=== PATIENT | male | born 1960 | race Caucasian/White ===

== ENCOUNTER 2016-10-04 11:40 | Outpatient (CLI) | payer MEDICARE ==
[~2016-10-04] VITALS: Ht 172.7 cm; Wt 64.5 kg
--- NOTE | ~2016-10-04 | HEMODYNAMI ---
PATIENT:SHEREEN MISTRY MEDICAL RECORD: [id number] : 56 LOCATION:[facility] ADMISSION DATE: 10/04/16 Generatedon:10/04/201613:42 Patient name: SHEREEN MISTRY Patient #: [id number] SSN: : Date of study: 10/04/2016 Page: Of Hemodynamic Procedure Report Patient Data Patient Demographics Procedure consent was obtained First Name: SHEREEN Gender: Male Last Name: FIDELIA : 1960 [facility] Initial: SANJANA Age: 56 year(s) Patient #: [id number] Race: Unknown Additional ID: [id number] Contact details Address: [address] [place] [address] State: [place] City: [place] Zip code: [address] Past Medical History Allergies Allergen Reaction Date Comments Reported Other allergy 10/04/2016 Atarax, Dilantin Admission Admission Data Admission Date: 10/04/2016 Admission Time: 11:40 Lab Results Lab Result Date: 10/04/2016 Lab Result Time: 0:00 Biochemistry Name Units Result Min Max Creatinine mg/dl 0.9 --(-*--)-- 0.6 1.3 CBC Name Units Result Min Max Hemoglobin g/dl 12.9 -*(----)-- 13.5 17.5 Procedure Procedure Types Cath Procedure Diagnostic Procedure C [facility] w/Coronaries Procedure Description Procedure Date Procedure Date: 10/04/2016 Procedure Start Time: 13:26 Procedure End Time: 13:41 Procedure Staff Name Function Jeffrey White MD Performing Physician Scooter Prather RT Scrub Nir Jennings RN Nurse Tara Porter RT Monitor Procedure Data Cath Procedure Fluoroscopy Diagnostic fluoroscopy Total fluoroscopy Time: 2.5 time: 2.5 min min Diagnostic fluoroscopy Total fluoroscopy dose: 291 dose: 291 mGy mGy Contrast Material Contrast Material Type Amount (ml) Isovue 300 58 Entry Location Entry Primary Successful Side Size Upsize Upsize Entry Closure Veronica ccessful Closure Location (Fr) 1 (Fr) 2 (Fr) Remarks Device Remarks Radial Right 6 Fr Mechanical artery Short Compression Estimated blood loss: 5 ml Diagnostic catheters Device Type Used For End Catheter Placement Terumo 5Fr Shyam 110cm LV Angiography catheter Terumo 5Fr Shyam 110cm Left Coronary catheter Angiography Terumo 5Fr Shyam 110cm Right Coronary catheter Angiography Procedure Complications No complications Procedure Medications Medication Administration Route Dosage Oxygen NC 2 l/min Heparin Flush Bag added to field 2 bags (1000units/500ml NS) 0.9% NaCl I.V. 100 ml/hr Radial Cocktail added to field 1 syringe (Verapomil 2mg/Nitro 400mcg/Heparin 1500units) Fentanyl I.V. 50 mcg Versed I.V. 1 mg Fentanyl I.V. 50 mcg Versed I.V. 1 mg Radial Cocktail I.A. 1 syringe (Verapomil 2mg/Nitro 400mcg/Heparin 1500units) Fentanyl I.V. 50 mcg Hemodynamics Rest HGB: 12.9 (g/dl) Heart Rate: 87 (bpm) Pressure Samples Time Site Value (mmHg) Purpose Heart Use Rate(bpm) 13:29 LV 102/-7,3 EDP 85 13:30 AO 62/39(48) Pullback 85 13:30 LV 99/-7,2 Pullback 85 Gradients Valve Time Site 1 Site 2 Mean SEP/DFP Peak To Heart Use (mmHg) (sec/min) Peak Rate (mmHg) (bpm) Aortic 13:30 LV AO 16 17 37 85 99/-7,2 62/39(48) Calculations Valve P-P Mean Valve Index Valve Source Name Gradient Area Flow (cm2) Aortic 37 16 37 16 Snapshots Pre Cath Intra NCS Post Cath Vital Signs Time Heart Resp SPO2 NIBP (mmHg) Rhythm Pain Sedation Rate (ipm) (%) Status Level (bpm) 13:06:23 91 16 97 160/98(126) NSR 0 (11) 10(A) , No pain 13:10:39 85 18 100 157/85(123) NSR 0 (11) 10(A) , No pain 13:14:51 86 19 98 122/66(88) NSR 0 (11) 10(A) , No pain 13:19:03 81 17 98 116/67(92) NSR 0 (11) 10(A) , No pain 13:23:15 80 18 98 102/58(81) NSR 0 (11) 9(A) , No pain 13:27:18 79 18 98 105/62(82) NSR 0 (11) 9(A) , No pain 13:31:28 84 17 97 78/41(70) NSR 0 (11) 9(A) , No pain 13:35:28 84 18 96 90/48(68) NSR 0 (11) 9(A) , No pain 13:37:29 81 18 96 87/46(64) NSR 0 (11) 9(A) , No pain 13:41:35 79 8 96 84/43(65) NSR 0 (11) 9(A) , No pain Medications Time Medication Route Dose Verified Delivered Reason Notes Effectiveness by by 13:09:49 Oxygen NC 2 l/min Nir Loyola Per Dick Jennings RN physician RN 13:10:00 Heparin Flush added 2 bags Nir Loyola used for Bag to Dick Jennings RN procedure (1000units/500ml field RN NS) 13:10:08 0.9% NaCl I.V. 100 Nir Loyola Per ml/hr Dick Jennings RN physician RN 13:10:17 Radial Cocktail added 1 Nir Loyola used for (Verapomil to syringe Dick Jennings RN procedure 2mg/Nitro RN 400mcg/Heparin 1500units) 13:18:34 Fentanyl I.V. 50 mcg Nir Nir for sedation Dick Jennings RN RN 13:18:41 Versed I.V. 1 mg Nir Nir for sedation Dick Jennings RN RN 13:20:17 Fentanyl I.V. 50 mcg Nir Nir for sedation Dick Jennings RN RN 13:20:21 Versed I.V. 1 mg Nir Nir for sedation Dick Jennings RN RN 13:28:04 Radial Cocktail I.A. 1 Nir Elliotty for (Verapomil syringe Dick Jennings RN vasodilation 2mg/Nitro RN 400mcg/Heparin 1500units) 13:28:10 Fentanyl I.V. 50 mcg Nir Nir for sedation Dick Jennings RN communications engineering technician Log Time Note 12:48:38 Nir Jennings RN sent for patient. Start room use. 12:58:44 Time tracking: Regular hours 12:58:47 Plan of Care:Hemodynamics will remain stable., Cardiac rhythm will remain stable., Comfort level will be maintained., Respiratory function will remain adequate., Patient/ family verbilizes understanding of procedure., Procedure tolerated without complication., Recovers from procedure without complications.. 12:58:52 Patient received from Pre/Post Procedure Room to CCL 2 Alert and oriented. Tansferred to table in Supine position. 12:58:53 Warm blankets applied, and hunter hugger turned on for patient comfort. 12:58:53 Correct patient and procedure confirmed by team. 12:58:54 Signed procedure consent form obtained from patient. 12:58:55 ECG and BP/O2 sat monitors applied to patient. 12:58:56 Full Disclosure recording started 13:05:14 Vital chart was started 13:09:28 Baseline sample Acquired. 13:09:31 Rhythm: sinus rhythm 13:09:46 H&P Date Dictated: 09/30/2016 Within 30 days and on chart., H&P Addendum completed by physician on day of procedure. (MUST COMPLETE FOR ALL OUTPATIENTS). 13:09:48 Pre-procedure instructions explained to patient. 13:09:48 Pre-op teaching completed and patient verbalized understanding. 13:09:49 Oxygen 2 l/min NC was administered by Nir Jennings RN; Per physician; 13:09:50 Family in waiting room. 13:09:52 Patient NPO since Midnight. 13:10:00 Heparin Flush Bag (1000units/500ml NS) 2 bags added to field was administered by Nir Jennings RN; used for procedure; 13:10:08 0.9% NaCl 100 ml/hr I.V. was administered by Nir Jennings RN; Per physician; 13:10:09 Patient allergic to Other allergyAtarax, Dilantin 13:10:13 Is the patient allergic to Iodine/contrast media? No. 13:10:15 Is patient on blood thinner?No 13:10:17 Radial Cocktail (Verapomil 2mg/Nitro 400mcg/Heparin 1500units) 1 syringe added to field was administered by Nir Jennings RN; used for procedure; 13:10:17 Patient diabetic? No. 13:10:50 Patient has internal pain pump right lower abdomen. 13:11:03 Previous problem with sedation/anesthesia? No ? 13:11:04 Snore? Yes 13:11:05 Sleep apnea? Yes 13:11:06 Deviated septum? No 13:11:07 Opens mouth fully? Yes 13:11:08 Sticks out tongue? Yes 13:11:15 Airway obstruction? Yes COPD 13:11:26 Dentures? No ? 13:11:29 Pre procedure: right dorsailis pedis pulse 2+ Normal; easily identifiable; not easily obliterated 13:11:32 Modified Abdullahi's test Ulnar < 7 seconds 13:11:36 Patient pain scale 0/10 ?. 13:11:43 IV patent on arrival in left hand with 0.9% NaCl at [facility]. 13:12:05 Lab Result : Creatinine 0.9 mg/dl 13:12:05 Lab Result : Hemoglobin 12.9 g/dl 13:13:01 Lab results completed and on chart. 13:13:05 Right Radial & Right Groin area was prepped with chlora-prep and draped in sterile fashion 13:13:06 Alarms reviewed by R. N. 13:13:06 Sharps counted by scrub and verified by R.N. 13:13:56 Use device set Radial Dx 13:13:57 Acist Syringe opened to sterile field. 13:13:58 Medline Cath Pack opened to sterile field. 13:13:58 Bag Decanter opened to sterile field. 13:13:59 Terumo 6Fr Slender Glidesheath opened to sterile field. 13:13:59 St [place] Pablo 260cm J .035 wire opened to sterile field. 13:14:00 Acist Hand Control opened to sterile field. 13:14:01 Acist Manifold opened to sterile field. 13:14:01 Tegaderm 4 x 4 opened to sterile field. 13:14:02 MBrace Wrist Support opened to sterile field. 13:17:28 Final Timeout: patient, procedure, and site verified with staff and physician. All members of the team are in agreement. 13:17:31 Right Radial site verified by team. 13:17:46 Physical assessment completed. ASA score P 2 - A patient with mild systemic disease as per Jeffrey White MD. 13:17:51 Sedation plan: IV Moderate Sedation Versed, Fentanyl 13:18:34 Fentanyl 50 mcg I.V. was administered by Inr Jennings RN; for sedation; 13:18:41 Versed 1 mg I.V. was administered by Nir Jennings RN; for sedation; 13:20:17 Fentanyl 50 mcg I.V. was administered by Nir Jennings RN; for sedation; 13:20:21 Versed 1 mg I.V. was administered by Nir Jennings RN; for sedation; 13:22:41 Zero performed for pressure channel P1 13:24:01 Zero performed for pressure channel P1 13:24:38 Procedure started. 13:26:26 Local anesthetic to right radial artery with Lidocaine 2% by Jeffrey White MD.INITIAL ACCESS ONLY 13:27:09 A 6 Fr Short sheath was inserted into the Right Radial artery 13:27:57 A Terumo 5Fr Shyam 110cm catheter was advanced over the wire and used for LV Angiography. 13:28:04 Radial Cocktail (Verapomil 2mg/Nitro 400mcg/Heparin 1500units) 1 syringe I.A. was administered by Nir Jennings RN; for vasodilation; 13:28:10 Fentanyl 50 mcg I.V. was administered by Nir Jennings RN; for sedation; 13:29:37 LV gram done using COPE 13:29:38 LV hemodynamics recorded. 13:29:45 Injector settings: Ml/sec: 5, Volume: 15, 13:29:51 EF : 55 % 13:30:49 A Terumo 5Fr Shyam 110cm catheter was advanced over the wire and used for Left Coronary Angiography. 13:33:15 A Terumo 5Fr Shyam 110cm catheter was advanced over the wire and used for Right Coronary Angiography. 13:34:30 Catheter removed. 13:35:56 Sheath removed intact; hemostasis achieved with Mechanical Compression to the Right Radial artery. 13:36:04 Procedure ended.(Physican Out) 13:36:51 Fluoroscopy time 02.50 minutes. 13:36:55 Fluoroscopy dose: 291 mGy 13:36:55 Flurop Dose total: 291 13:37:06 Contrast amount:Isovue 300 58ml. 13:37:08 Sharps counted by scrub and verified by R.N. 13:37:10 TR band inflated with 11cc of air. 13:37:10 Insertion/operative site no bleeding no hematoma. 13:37:17 Post right radial artery:stable, clean and dry 13:37:29 Post Procedure Pulses reassessed and unchanged 13:37:35 Post-procedure physical assessment completed. ASA score P 2 - A patient with mild systemic disease as per Jeffrey White MD. 13:37:41 Post procedure rhythm: unchanged. 13:37:46 Estimated blood loss: 5 ml 13:37:47 Post procedure instruction explained to patient.Patient verbalizes understanding. 13:37:48 Patient needs reinforcement of post procedure teaching. 13:38:15 Terumo TR Band Standard opened to sterile field. 13:38:46 Procedure and supply charges have been captured, reviewed, submitted and are correct. 13:38:50 Procedure Complication : No complications 13:38:52 See physician's report for complete and final results. 13:40:55 Vital chart was stopped 13:40:57 Report given to Pre/Post Procedure Room. 13:41:02 Patient transfered to Pre/Post Procedure Room with Stretcher. 13:41:03 Procedure ended. 13:41:03 Full Disclosure recording stopped 13:41:09 End room use (Document Last) Device Usage Item Name Manufacture Quantity Catalog Hospital Part Current Minimal Lot# / Number Charge Number Stock Stock Serial# Code Acist Acist 1 [id number] 193060 469960 613497 20 Syringe [employer] Inc Medline Cardinal 1 [id number] 685588 12223 257745 5 Cath Pack Health Bag Microtek 1 2001S 182395 83773 315846 5 Living[employer] Terumo 6Fr Terumo 1 [id number] 005154 726117 834456 [address] [place] 1 [id number] 232295 944979 993831 30 260cm J .035 wire Acist Hand Acist 1 58236 722171 063908 918645 5 Control [employer] Inc Acist Acist 1 42706 140230 259122 817679 5 Manifold Medical Systems Inc Tegaderm 4 3M 1 1626W 776548 094304 208457 5 x 4 MBrace Advanced 1 140-0250-00 388808 56920 600131 5 Wrist Vascular Support Dynamics Terumo 5Fr Terumo 1 40-5052 497537 895462 443736 5 Shyam 110cm catheter Terumo TR Terumo 1 [id number] 037337 999918 398496 40 Band Standard Signature Audit Vivian Stage Time Signature Unsigned Intra-Procedure 10/04/2016 Tara 1:42:40 PM Counts RT(R) Signatures Monitor : Tara Signature : Counts RT Date : Time : [address] [place] [address]
[~2016-10-04 11:40] MED LIST: COMBIVENT RESPIM4 GM INH; HYDROCODONE-APA1 TAB PO; HYTRIN5 MG PO; LASIX20 MG PO; LOPRESSOR25 MG PO; LOVASTATIN20 MG PO; OMEPRAZOLE40 MG PO; PERCOCET 10/3251 TA1 PO; PHENERGAN25 M1 PO; PRINIVIL10 MG PO; RESTORIL15 MG PO; STOOL SOFTENER100 M1 PO; VALIUM5 MG PO
[2016-10-04] MEDS ORDERED: MUCUS RELIEF400 MG PO (12:06)
[2016-10-04] MEDS ORDERED: DESERYL100 MG PO (12:08)
[2016-10-04] MEDS ORDERED: ZOFRAN8 MG PO (12:08)
[2016-10-04] MEDS ORDERED: ACETAMINOPHEN500 M1 PO (12:10)
[2016-10-04] MEDS ORDERED: FUROSEMIDE20 MG PO (12:12)
[2016-10-04] MEDS ORDERED: LASIX20 MG PO (12:12)
[2016-10-04 12:23] VITALS: BP 153/74; Ht 172.7 cm; Wt 64.5 kg
[2016-10-04 12:38] LABS: BASOPHILS 0.2 % (0.0-2.0); EOSINOPHILS 1.5 % (0-7); HEMATOCRIT 40.4 % (42.0-54.0); HEMOGLOBIN 12.9 g/dL (13.5-17.5); IMMATURE GRANULOCYTES 0.2 % (0-5); LYMPHOCYTES 16.5 % (15-50); MCH 30.9 pg (26.0-34.0); MCHC 31.9 g/dL (31.0-37.0); MCV 96.9 fL (80.0-100.0); MEAN PLATELET VOLUME 9.4 fL (7.4-10.4); MONOCYTES 5.3 % (2-11); NEUTROPHILS 76.3 % (40-80); PLATELET COUNT 160 10x3/uL (130-400); RBC 4.17 10x6/uL (4.20-6.10); RDW 14.2 % (11.5-14.5); WBC 6.6 10x3/uL (4.8-10.8)
[2016-10-04 12:55] LABS: CALC OSMOLALITY 283 mosm/kg (275-300); CALCIUM 8.8 mg/dL (8.5-10.1); CARBON DIOXIDE 31.3 mmol/L (21.0-32.0); CHLORIDE - SERUM 103 mmol/L (98-107); CREATININE - SERUM 0.9 mg/dL (0.6-1.3); GLUCOSE 98 mg/dL (74-106); POTASSIUM - SERUM 3.6 mmol/L (3.5-5.1); SODIUM 142 mmol/L (136-145); UREA NITROGEN 16 mg/dL (7-18); eGFR NON AFRICAN AMERICAN > 90 mL/min (90-120)
--- NOTE | 2016-10-04 15:33 | NUR ---
1400-TR BAND INTACT, NO BLEEDING NOTED 1430-NO CHANGES, RESTING WITH FAMILY AT SIDE
--- NOTE | 2016-10-14 12:24 | OP ---
PATIENT NAME: SHEREEN MISTRY MEDICAL RECORD: [id number] :56 LOCATION:D.[facility] ADMISSION DATE: SURGEON: TIFF YA M.D. DATE OF OPERATION: 10/04/2016 PROCEDURES PERFORMED: 1. Selective coronary angiography. 2. Left heart catheterization with ventriculogram. INDICATION: A 56-year-old gentleman who presents with symptoms of worsening angina and shortness of breath. REFERRING PHYSICIAN: Dr. Yimi Mojica D.O. EQUIPMENT USED: A 5-Nepalese Shyam catheter. TECHNIQUE: A 6-Nepalese sheath was inserted in retrograde fashion in the right radial artery. Next, selective coronary angiography was performed in standard 5-Nepalese Shyam catheter. Left heart catheterization was performed using the Shyam catheter as well. CORONARY ANATOMY: 1. Left main: Left main trunk is moderate in caliber. It gives rise to the LAD and circumflex. There is no obstruction. 2. LAD: This vessel is large in caliber. The proximal vessel is mildly calcified, but there is no flow limitations noted throughout the vessel. There is nothing worse than 20% throughout the entire vessel. 3. Circumflex: This vessel is large in caliber. It is a smooth-walled vessel and angiographically normal. It supplies a large lateral branch in the proximal segment. This vessel is free of disease as well. 4. Right coronary: This vessel is moderate in caliber and codominant. It is a smooth-walled vessel and angiographically normal. 5. Left ventricle: Left ventricle is normal in size and function. No wall motion abnormalities are seen. Estimated ejection fraction is 55%. There was a 37 mm gradient noted on pullback through the aortic valve. IMPRESSION: 1. Essentially normal coronary arteries. 2. Normal left ventricular function. 3. Mild to moderate aortic stenosis by gradient. RECOMMENDATIONS: I will check an echocardiogram to further assess his aortic valve. This could be the source of his dyspnea. TRANSINT:[id number] Voice Confirmation ID: [id number] DOCUMENT ID: [id number] TIFF YA M.D. at 1224 CC: [id number] DICTATION DATE: 10/04/16 1343 CLERICAL AND OFFICE SUPPORT WORKERS: 10/04/16 1442 DEP CLI 10/04/16 [facility] [address] [place] [address]
== END 2016-10-04 16:30 | disposition home or self-care (01) ==
LOC: D.CATH 11:40
PROVIDERS: Internal Medicine Cardiovascular Disease
DX: I35.0 Nonrheumatic aortic (valve) stenosis (principal)

== ENCOUNTER 2018-05-08 09:09 | Day surgery (SDC) | payer MEDICARE ==
[~2018-05-08] VITALS: Ht 172.7 cm; Wt 68.2 kg
--- NOTE | ~2018-05-08 | OP ---
PATIENT NAME: SHEREEN MISTRY MEDICAL RECORD: [id number] :56 LOCATION:D.OPS ADMISSION DATE: SURGEON: YURIDIA PERALTA MD DATE OF OPERATION: 05/08/2018 PREOPERATIVE DIAGNOSIS: Desires screening colonoscopy. POSTOPERATIVE DIAGNOSIS: Desires screening colonoscopy, without colonic polyps or masses. PROCEDURE: Total colonoscopy to cecum. SURGEON: Yuridia Peralta MD SHUFFLE BOARD OPERATOR: None. BLOOD LOSS: Zero. COMPLICATIONS: None. ENDOSCOPIC COURSE: The patient was conveyed to the endoscopy suite electively on 05/08/2018. IV sedation was induced by the anesthesia staff. The patient was placed in the Nelson position. A digital rectal examination was performed. A colonoscope was inserted through the anus. It was easily advanced to the cecum. Upon withdrawal, I irrigated and aspirated extensively. The prep was adequate. I dragged the folds. Pullback was greater than a 14-minute pullback. A retroflexed view was obtained in the rectum. I then unretroflexed the scope and removed it under direct vision. Unless the patient develops new symptoms such as bleeding, there is no need for the patient to follow up with me in the office. Otherwise, his next colonoscopy can be in 10 years. TRANSINT:[id number] Voice Confirmation ID: [id number] DOCUMENT ID: [id number] YURIDIA PERALTA MD at 1603 CC: RASHID CRUZ and SILAS SWIFT ANP [id number] DICTATION DATE: 05/08/18 1343 WRONG ADDRESS CLERK: 05/08/18 1427 [facility] 05/08/18 [place] [id number]
[~2018-05-08 09:09] MED LIST changes: +ACETAMINOPHEN500 M1 PO; +DESERYL100 MG PO; +FUROSEMIDE20 MG PO; +MUCUS RELIEF400 MG PO; +ZOFRAN8 MG PO
[2018-05-08 09:42] LABS: APTT 29.3 SECONDS (22.8-39.4); INR 1.08 (0.85-1.17); PROTIME 13.6 SECONDS (11.6-15.0)
[2018-05-08 09:47] LABS: ALBUMIN 3.5 g/dL (3.4-5.0); ALKALINE PHOSPHATASE 68 U/L (46-116); ALT (SGPT) 21 U/L (10-68); BILIRUBIN - TOTAL 0.44 mg/dL (0.2-1.3); CALC OSMOLALITY 281 mosm/kg (275-300); CALCIUM 8.5 mg/dL (8.5-10.1); CARBON DIOXIDE 30.2 mmol/L (21.0-32.0); CHLORIDE - SERUM 104 mmol/L (98-107); CREATININE - SERUM 0.8 mg/dL (0.6-1.3); GLUCOSE 127 mg/dL (74-106); POTASSIUM - SERUM 3.4 mmol/L (3.5-5.1); PROTEIN - SERUM 7.4 g/dL (6.4-8.2); SODIUM 141 mmol/L (136-145); UREA NITROGEN 9 mg/dL (7-18); eGFR NON AFRICAN AMERICAN > 90 mL/min (90-120)
[2018-05-08 10:05] VITALS: BP 150/84; Ht 172.7 cm; Wt 68.2 kg
[2018-05-08 10:15] LABS: HEMATOCRIT 27.4 % (42.0-54.0); HEMOGLOBIN 8.9 g/dL (13.5-17.5); MCHC 32.5 g/dL (31.0-37.0); MCV 80.1 fL (80.0-100.0); RBC 3.42 10x6/uL (4.20-6.10); WBC 11.5 10x3/uL (4.8-10.8)
[2018-05-08 10:16] LABS: MEAN PLATELET VOLUME 11.2 fL (7.4-10.4); RDW 13.7 % (11.5-14.5)
== END 2018-05-08 14:12 | disposition home or self-care (01) ==
LOC: D.OPS 09:09
PROVIDERS: Anesthesiology
DX: Z12.11 Encounter for screening for malignant neoplasm of colon (principal); Z01.812 Encounter for preprocedural laboratory examination

== ENCOUNTER → 2018-06-13 18:43 | Outpatient (CLI) | payer MEDICARE ==
[2018-05-08 10:05] VITALS: BMI 22.8
== END | disposition home or self-care (01) ==
LOC: D.LABREF 18:43
DX: R82.90 Unspecified abnormal findings in urine (principal)

== ENCOUNTER → 2018-06-19 10:28 | Outpatient (CLI) | payer MEDICARE ==
[2018-05-08 10:05] VITALS: BMI 22.8
== END | disposition home or self-care (01) ==
LOC: D.CT 10:28
DX: R31.21 Asymptomatic microscopic hematuria (principal)

== ENCOUNTER 2018-07-19 05:50 | Day surgery (SDC) | payer MEDICARE ==
[2018-07-18 15:43] LABS: BASOPHILS 0.2 % (0-2); EOSINOPHILS 1.1 % (0-7); HEMATOCRIT 41.1 % (42.0-54.0); HEMOGLOBIN 13.6 g/dL (13.5-17.5); IMMATURE GRANULOCYTES 0.2 % (0-5); LYMPHOCYTES 14.5 % (15-50); MCH 31.1 pg (26.0-34.0); MCHC 33.1 g/dL (31.0-37.0); MCV 94.1 fL (80.0-100.0); MEAN PLATELET VOLUME 9.1 fL (7.4-10.4); MONOCYTES 5.3 % (2-11); NEUTROPHILS 78.7 % (40-80); PLATELET COUNT 196 10x3/uL (130-400); RBC 4.37 10x6/uL (4.20-6.10); RDW 13.7 % (11.5-14.5); WBC 6.6 10x3/uL (4.8-10.8)
[2018-07-18 15:52] LABS: INR 1.07 (0.85-1.17); PROTIME 13.4 SECONDS (11.6-15.0)
[2018-07-18 15:53] LABS: APTT 27.8 SECONDS (22.8-39.4)
[2018-07-18 15:58] LABS: ALBUMIN 3.8 g/dL (3.4-5.0); ALKALINE PHOSPHATASE 57 U/L (46-116); ALT (SGPT) 18 U/L (10-68); BILIRUBIN - TOTAL 0.27 mg/dL (0.2-1.3); CALC OSMOLALITY 280 mosm/kg (275-300); CALCIUM 8.7 mg/dL (8.5-10.1); CARBON DIOXIDE 30.4 mmol/L (21.0-32.0); CHLORIDE - SERUM 101 mmol/L (98-107); CREATININE - SERUM 0.9 mg/dL (0.6-1.3); GLUCOSE 97 mg/dL (74-106); POTASSIUM - SERUM 4.1 mmol/L (3.5-5.1); PROTEIN - SERUM 7.6 g/dL (6.4-8.2); SODIUM 140 mmol/L (136-145); UREA NITROGEN 17 mg/dL (7-18); eGFR NON AFRICAN AMERICAN > 90 mL/min (90-120)
[~2018-07-19] VITALS: Ht 177.8 cm; Wt 68.2 kg
[~2018-07-19 05:50] MED LIST changes: +BACLOFEN INTRATHEC; +CLARITIN 10 MG10 MG PO; +MORPHINE S10 MG/5 ML INTRATHEC
[2018-07-19 06:20] VITALS: BP 114/67; Ht 177.8 cm; Wt 68.2 kg
--- NOTE | 2018-07-19 08:30 | NUR ---
REC'D FROM SURGERY. FAMILY AT BEDSIDE. DR PERALTA SPOKE WITH FAMILY AND PT. ICE WATER GIVEN TO PT.
--- NOTE | 2018-07-19 09:00 | NUR ---
FL LISAY BROUGHT TO PT. AMBULATED TO BATHROOM AND VOIDED WITHOUT DIFFICULTY. FAMILY AT BEDSIDE.
--- NOTE | 2018-07-19 09:10 | NUR ---
TOLERATED FL DIET. IV DC'D WITH CATHETER INTACT. WRITTEN AND VERBAL DC INST. GIVEN TO PT. VERBALIZED UNDERSTANDING.
--- NOTE | 2018-07-19 09:17 | NUR ---
DC'D HOME WITH FAMILY VIA PRIVATE VEHICLE. TAKEN TO VEHICLE VIA WC. STABLE AT TIME OF DC.
--- NOTE | 2018-07-19 09:49 | OP ---
PATIENT NAME: SHEREEN MISTRY MEDICAL RECORD: [id number] :56 LOCATION:[facility] ADMISSION DATE: SURGEON: YURIDIA PERALTA MD DATE OF OPERATION: 07/19/2018 SURGEON: Yuridia Peralta MD ANESTHESIA: TIVA by Reyes Vázquez CRNA DIAGNOSES: Microscopic hematuria, obstructive BPH, elevated PSA of 5.32 on 05/18/2018. PROCEDURES: Cystoscopy and transrectal ultrasound with prostate biopsy. FINDINGS: On cystoscopy, obstructive lateral lobes of the prostate. Single ureteral orifices bilaterally. No bladder tumors. On transrectal ultrasound, 16 gram prostate with no hypoechoic areas. Intraprostatic stones were seen. SPECIMENS: Prostate biopsy cores. BLOOD LOSS: None. CLINICAL HISTORY: This is a 58-year-old male, who was referred by Dr. Yimi Mojica for an elevated PSA of 5.34. He has a past medical history of hepatitis C, relapsing remitting MS, seizure disorder, COPD. He is a current smoker. He has been smoking 1-1/2 packs per day since age 13. He was found to have microscopic hematuria. Hematuria workup was performed including CT scan of the abdomen and pelvis. This was normal. An urine cytology was obtained and this showed no tumor cells. He comes today to have cystoscopy to complete the microscopic hematuria workup. He does complain of slow urinary flow and hesitancy getting started. This may be due to his MS, but during cystoscopy, I will also evaluate his prostate for the degree of obstruction. Finally for the elevated PSA, he is having a transrectal ultrasound and prostate biopsy today. HE IS ALLERGIC TO ATARAX AND DILANTIN. He was given Ancef certified nutritionist to the OR. DESCRIPTION OF PROCEDURE: The patient was given IV sedation. He was then placed into dorsal lithotomy position and prepped and draped. A 17-Telugu cystoscope with 30-degree lens was used for visualization. Findings as outlined above. No bladder tumors were seen. He does have an obstructive prostate. It should be noted that prior to prepping and draping him. I performed a digital rectal examination and I palpated a small prostate with no nodules. We then switched to the transrectal ultrasound probe. The probe was introduced into the rectum and prostate size measurements were obtained. The prostate is rather flat and small. Size estimate was 16 grams only. We took sextant biopsies with at least 3 cores from each sextant. Once all the specimens were obtained, the procedure was terminated. The patient was sent back to the preoperative holding area. I will see him in followup next week to review his pathology results with him. If he does not have prostate cancer then he would be a good candidate for the UroLift procedure to treat his obstructive BPH. TRANSINT:[id number] Voice Confirmation ID: [id number] DOCUMENT ID: [id number] OPERATIVE REPORT [id number] SHEREEN MISTRY ROBERT S MD at 0949 CC: [id number] DICTATION DATE: 07/19/18 0832 CREDIT CONTROL ASSISTANT: 07/19/18 0935 [facility] 07/19/18 [place] [id number] [place] [address]
== END 2018-07-19 09:17 | disposition home or self-care (01) ==
LOC: D.OPS 05:50 → D.PAN 07:30 → D.OPS 09:17
PROVIDERS: Anesthesiology
DX: R31.29 Other microscopic hematuria (principal); R97.20 Elevated prostate specific antigen [PSA]; N40.1 Benign prostatic hyperplasia with lower urinary tract symptoms; N13.8 Other obstructive and reflux uropathy; R39.11 Hesitancy of micturition; R39.12 Poor urinary stream; Z86.19 Personal history of other infectious and parasitic diseases; G35 Multiple sclerosis; G40.909 Epilepsy, unspecified, not intractable, without status epilepticus; J44.9 Chronic obstructive pulmonary disease, unspecified; F17.210 Nicotine dependence, cigarettes, uncomplicated; Z88.8 Allergy status to other drugs, medicaments and biological substances

== ENCOUNTER 2018-08-30 08:26 | Day surgery (SDC) | payer MEDICARE ==
[~2018-08-30] VITALS: Ht 177.8 cm; Wt 68.0 kg
[~2018-08-30 08:26] MED LIST changes: +ANORO ELLIPTA1 EACH INH; +IPRAT-ALBUT 0.5-3 ML UPD; +SINGULAIR10 MG PO
[2018-08-30 08:57] LABS: HEMATOCRIT 39.9 % (42.0-54.0); HEMOGLOBIN 13.1 g/dL (13.5-17.5); MCH 31.2 pg (26.0-34.0); MCHC 32.8 g/dL (31.0-37.0); RBC 4.2 10x6/uL (4.20-6.10); RDW 14.9 % (11.5-14.5); WBC 6.2 10x3/uL (4.8-10.8)
[2018-08-30 09:09] LABS: CALC OSMOLALITY 284 mosm/kg (275-300); CALCIUM 8.6 mg/dL (8.5-10.1); CARBON DIOXIDE 29.4 mmol/L (21.0-32.0); CHLORIDE - SERUM 103 mmol/L (98-107); CREATININE - SERUM 0.8 mg/dL (0.6-1.3); GLUCOSE 110 mg/dL (74-106); POTASSIUM - SERUM 3.8 mmol/L (3.5-5.1); SODIUM 141 mmol/L (136-145); UREA NITROGEN 21 mg/dL (7-18); eGFR NON AFRICAN AMERICAN > 90 mL/min (90-120)
[2018-08-30 09:53] VITALS: BP 157/82; Ht 177.8 cm; Wt 68.0 kg
--- NOTE | 2018-08-30 13:15 | NUR ---
REC'D FROM SURGERY.FAMILY AT BEDSIDE. FL TRAY BROUGHT TO PT.
--- NOTE | 2018-08-30 13:45 | NUR ---
TOLERATED DIET. AMBULATED TO BATHROOM AND VOIDED WITHOUT DIFFICULTY. IV DC'D WITH CATHETER INTACT.
--- NOTE | 2018-08-30 13:50 | NUR ---
WRITTEN AND VERBAL DC INST. GIVEN TO PT. VERBALIZED UNDERSTANDING.
--- NOTE | 2018-08-30 13:50 | OP ---
PATIENT NAME: SHEREEN MISTRY MEDICAL RECORD: [id number] :56 LOCATION:D.OPS ADMISSION DATE: SURGEON: NIRMAL PERALTA MD DATE OF OPERATION: 08/30/2018 SURGEON: Nirmal Peralta MD ANESTHESIA: TIVA by Reyes Vázquez CRNA DIAGNOSIS: Obstructive BPH. PSA was 5.34. Transrectal ultrasound was 16 grams of prostate. Biopsy was negative for cancer. The patient has been on Flomax for 6 years and this gives an IPSS score of 28 and quality of life score of 4. FINDINGS: Bilateral lateral lobe hyperplasia with no median lobe. Single ureteral orifices bilaterally. No bladder tumors. PROCEDURE: UroLift times 4 implants. BLOOD LOSS: Minimal. CLINICAL HISTORY: This is a 58-year-old male whom I saw initially for an elevated PSA. He had a PSA of 5.34 on 05/18/2018. Transrectal ultrasound showed a 16-gram prostate. Pathology was benign. He has been on Flomax for 5-6 years and he still has significant voiding symptoms. With the medication on board, his IPPS score is 28 and his quality of life score is 4. He has chosen to have the UroLift procedure. HE IS ALLERGIC TO ATARAX, REGLAN, AND DILANTIN. He was given Ancef congressional representative to the OR. DESCRIPTION OF PROCEDURE: The patient was given IV sedation. He was then placed into dorsal lithotomy position and prepped and draped. The cystoscope was placed into the penile urethra, which shows no strictures. Prostatic urethra shows obstructive lateral lobes. Then, 1.5 cm distal to the bladder neck, we placed 1 implant on each side at the anterior lateral lobes. Then, at the verumontanum level, we placed 2 more implants, one on each side at the anterior lateral lobes. He then had a nice widely open urethral channel. The bladder was emptied through the cystoscope sheath and the patient was brought back to the preoperative holding area. I will see him in followup in 1 month's time. TRANSINT:[id number] Voice Confirmation ID: [id number] DOCUMENT ID: [id number] NIRMAL PERALTA MD at 1350 CC: [id number] DICTATION DATE: 08/30/18 1321 INSTRUCTIONAL SUPPORT SERVICES DIRECTOR: 08/30/18 1333 [facility] [address] [place] [address]
--- NOTE | 2018-08-30 13:55 | NUR ---
DC'D HOME WITH FAMILY VIA PRIVATE VEHICLE. TAKEN TO VEHICLE VIA WC. STABLE AT TIME OF DC.
== END 2018-08-30 13:55 | disposition home or self-care (01) ==
LOC: D.OPS 08:26
PROVIDERS: Anesthesiology; ATTEND Urology
DX: N40.1 Benign prostatic hyperplasia with lower urinary tract symptoms (principal); N13.8 Other obstructive and reflux uropathy; Z88.8 Allergy status to other drugs, medicaments and biological substances; Z01.812 Encounter for preprocedural laboratory examination

== ENCOUNTER → 2020-12-31 13:14 | Outpatient (CLI) | payer OTHER, MEDICARE ==
[2020-09-09 12:52] VITALS: BMI 19.7
--- NOTE | 2020-12-31 14:24 | NUR ---
PT ARRIVED FOR PRE OP WORK FOR BACK SURGERY. PT WAS WEARING A NON-REBREATHER TAPED UP AT 3L/M. HAD TO DRAW ABGs SO I REMOVED HIS MASK AND EXPLAINED TO HIM HOW DANGEROUS IT WAS FOR HIM TO BE WEARING THAT MASK AT 3L/M. CALLED HIS HOME CARE COMPANY AND GOT HIM SET UP WITH APPROPRIATE OXYGEN WEAR. SPOKE WITH SALLY YANEZ AT PULMONARY AND REPORTED TO HER WHAT I FOUND. PT COULD ONLY DO A FVL, BECAUSE HE JUST DOESN'T HAVE ANY FLOW. DOESN'T WALK DUE TO HIS BROKEN BACK, UNABLE TO DO WALK TEST.
== END | disposition home or self-care (01) ==
LOC: D.RT 13:00
PROVIDERS: ATTEND Nurse Practitioner Family
DX: J44.9 Chronic obstructive pulmonary disease, unspecified (principal)